=== PATIENT | female | born 1970 | race African-American/Black ===

== ENCOUNTER 2017-05-03 04:40 | Inpatient (IN) | END 2017-05-16 20:10 | disposition home or self-care (01) | DRG 123 ==

== ENCOUNTER 2018-08-15 20:17 | Emergency (ER) | payer SELFPAY ==
[~2018-08-15] VITALS: Ht 170.2 cm; Wt 119.5 kg
[~2018-08-15 20:17] MED LIST: DOCU-144 PO; FER325 PO; LISI-471 PO
[2018-08-15 20:58] VITALS: Ht 170.2 cm; Wt 119.5 kg
[2018-08-15] MEDS ORDERED: KETOROLAC 30 MG INJ IV STA (22:04)
[2018-08-15] MEDS ORDERED: morphine 4 MG/ML VIAL IV STA (22:04)
--- NOTE | 2018-08-15 23:17 | ERD ---
ER Documentation Chief Complaint Chief Complaint right flank pain x 1 week ROS All systems reviewed and are negative except as per history of present illness. Medications Home Meds Active Scripts Lisinopril* (Lisinopril*) 20 Mg Tablet, 20 MG PO BID for 30 Days, TAB Prov:DELVIS VICTORIA 05/16/17 Reported Medications Docusate Sodium* (Colace*) 100 Mg Capsule, 100 MG PO DAILY, #30 CAP 05/03/17 Ferrous Sulfate* (Ferrous Sulfate*) 325 Mg Tabec, 325 MG PO BID, TAB 05/03/17 Allergies Allergies: Coded Allergies: Sulfa (Sulfonamide Antibiotics) (Unverified Allergy, Unknown, 05/03/17) PMhx/Soc History of Surgery: Yes (R knee sx, shoulder sx,cardiac sx) Anesthesia Reaction: No Hx Neurological Disorder: Yes (nerve optic problem,vertigo) Hx Respiratory Disorders: No Hx Cardiac Disorders: Yes (HTN) Hx Psychiatric Problems: No Hx Miscellaneous Medical Probl: Yes (Bilat Otitis, anemia) Hx Alcohol Use: No (rarely) Hx Substance Use: No Hx Tobacco Use: No Smoking Status: Never smoker Physical Exam Vitals Vital Signs Date Temp Pulse Resp B/P (MAP) Pulse Ox O2 O2 Flow FiO2 Time Delivery Rate 08/15/18 96 18 153/104 98 Room Air 22:30 (120) 08/15/18 84 17 141/95 100 Room Air 22:00 (110) 08/15/18 98.0 87 20 185/94 96 20:58 (124) Physical Exam Const: No acute distress Head: Atraumatic Eyes: Normal Conjunctiva ENT: Normal External Ears, Nose and Mouth. Neck: Full range of motion. No meningismus. Resp: Clear to auscultation bilaterally Cardio: Regular rate and rhythm, no murmurs Abd: Soft, non tender, non distended. Normal bowel sounds Skin: No petechiae or rashes Back: No midline or flank tenderness Ext: No cyanosis, or edema Neur: Awake and alert Psych: Normal Mood and Affect Result Diagram: 08/15/18215608/[id number]/182156 Results 24 hrs Laboratory Tests Test 08/15/18 21:57 White Blood Count 10.6 10^3/ul Red Blood Count 4.13 10^6/ul Hemoglobin 10.8 g/dl Hematocrit 34.4 % Mean Corpuscular Volume 83.3 fl Mean Corpuscular Hemoglobin 26.2 pg Mean Corpuscular Hemoglobin Concent 31.4 g/dl Red Cell Distribution Width 14.0 % Platelet Count 301 10^3/UL Mean Platelet Volume 11.1 fl Immature Granulocytes % 0.500 % Neutrophils % 69.0 % Lymphocytes % 20.3 % Monocytes % 7.7 % Eosinophils % 1.8 % Basophils % 0.7 % Nucleated Red Blood Cells % 0.0 /100WBC Immature Granulocytes # 0.050 10^3/ul Neutrophils # 7.3 10^3/ul Lymphocytes # 2.1 10^3/ul Monocytes # 0.8 10^3/ul Eosinophils # 0.2 10^3/ul Basophils # 0.1 10^3/ul Nucleated Red Blood Cells # 0.0 10^3/ul Sodium Level 142 mmol/L Potassium Level 3.7 mmol/L Chloride Level 108 mmol/L Carbon Dioxide Level 26 mmol/L Anion Gap 8 Blood Urea Nitrogen 15 mg/dl Creatinine 0.94 mg/dl Est Glomerular Filtrat Rate mL/min > 60 mL/min Glucose Level 89 mg/dl Calcium Level 8.7 mg/dl Total Bilirubin 0.3 mg/dl Direct Bilirubin 0.00 mg/dl Indirect Bilirubin 0.3 mg/dl Aspartate Amino Transf (AST/SGOT) 16 IU/L Alanine Aminotransferase (ALT/SGPT) 16 IU/L Alkaline Phosphatase 92 IU/L Troponin I < 0.012 ng/ml Total Protein 7.8 g/dl Albumin 3.8 g/dl Globulin 4.00 g/dl Albumin/Globulin Ratio 0.95 Lipase 81 U/L Current Medications Medications Dose Sig/Fab Start Time Status Last (Trade) Ordered Route PRN Stop Time Admin Dose Reason Admin Morphine 6 mg ONCE STAT 08/15/18 DC 08/15/18 Sulfate IV 22:04 22:15 (morphine) 08/15/18 22:05 Ketorolac 30 mg ONCE STAT 08/15/18 DC Tromethamine IV 22:04 (Toradol) 08/15/18 22:05 GUILLERMO HURLEY MD Aug 15, 2018 23:17
[2018-08-16] MEDS ORDERED: IBUP800T48 PO (00:11)
[2018-08-16 00:30] VITALS: BP 145/82; PULSE 72; RESP 20
== END 2018-08-16 00:38 | disposition home or self-care (01) ==
LOC: E/R 20:17
DX: R10.9 Unspecified abdominal pain (principal); I10 Essential (primary) hypertension; R40.2142 Coma scale, eyes open, spontaneous, at arrival to emergency department; R40.2362 Coma scale, best motor response, obeys commands, at arrival to emergency department; R40.2252 Coma scale, best verbal response, oriented, at arrival to emergency department; Z98.61 Coronary angioplasty status
CPT/HCPCS: 36415; 74176; 80053; 81001; 81025; 83690; 84484; 85025; 96374; 96375; 99285; J1885; J2270; 81003